=== PATIENT | female | born 1965 | race Two or more races ===

== ENCOUNTER → 2024-06-05 | Outpatient (CLI) | payer MEDICAID, SELFPAY ==
--- NOTE | 2024-06-05 | XR_ITS ---
Examination: Diagnostic digital mammography, bilateral Computer aided detection 3-D breast Tomosynthesis, bilateral Date and time of exam: June 05, 2024 1040 hours Compared to mammograms dating to December 27, 2016 INDICATIONS: Bilateral itching and tenderness around the nipples beginning 2 months ago Technique: Nonmagnified MLO, CC views of the breasts to been obtained, reconstructed from 3-D Tomosynthesis images. R2 computer aided detection program utilized for evaluation of suspicious masses and/or abnormal calcifications. 3-D Tomosynthesis images obtained. Findings: Scattered areas of fibroglandular density 15 mm focal asymmetry 12:00 position left breast anterior depth Impression: BI-RADS Category 0: Incomplete: Need additional imaging evaluation 15 mm focal asymmetry 12:00 position left breast anterior depth, recommend follow-up spot tomographic views of this asymmetry.
--- NOTE | 2024-06-05 09:30 | XR_ITS ---
Examination: Breast ultrasound complete, bilateral Date and time of exam: June 05, 2024 1013 hours INDICATIONS: Bilateral breast tenderness and itching beginning 2 months ago Technique: Real-time grayscale ultrasonographic imaging bilateral breasts, including all 4 quadrants as well as nipple retroareolar and axillary regions. Findings: Sonographic images right and left breast demonstrated no cystic or solid masses IMPRESSION: BI-RADS Category 1: Negative studies
== END | disposition home or self-care (01) ==
LOC: CDIM 09:48
PROVIDERS: PCP Family Medicine; Referring Provider Family Medicine; Visit Provider Family Medicine
DX: R92.8 Other abnormal and inconclusive findings on diagnostic imaging of breast (principal); N64.89 Other specified disorders of breast
CPT/HCPCS: 76641; 77062; 77066; G0279